=== PATIENT | female | born 1970 | race Caucasian/White ===

== ENCOUNTER 2016-06-16 22:52 | Emergency (ER) | payer MEDICAID, OTHER ==
[2016-06-16] MEDS ORDERED: DILAUDID 1 MG/ML AMP ONE (23:51)
[2016-06-16] MEDS ORDERED: SODIUM CHLORIDE 0.9% 2,000 ML ONE (23:52)
[2016-06-16] MEDS ORDERED: ONDANSETRON 4 MG VIAL ONE (23:52)
[2016-06-17] MEDS ORDERED: PIPERACIL/TAZO 4.5GM/100ML 100 ML IV ONE (00:35)
[2016-06-17] MEDS ORDERED: VANCOMYCIN 1,250 MG in SODIUM CHLORIDE 0.9% 250 ML IV ONE (00:35)
[2016-06-17] MEDS ORDERED: DILAUDID 1 MG/ML AMP ONE (01:30)
== END 2016-06-17 01:35 | disposition other institution (70) ==
LOC: ER 22:52
DX: T81.4XXA Infection following a procedure, initial encounter (principal); L03.311 Cellulitis of abdominal wall; R00.0 Tachycardia, unspecified; Z87.828 Personal history of other (healed) physical injury and trauma
CPT/HCPCS: 36415; 71010; 72170; 80053; 81001; 83605; 85025; 87040; 96361; 96374; 96375; 96376